=== PATIENT | male | born 1940 | race Caucasian/White ===

== ENCOUNTER 2016-10-06 07:44 | Day surgery (SDC) | payer OTHER ==
[~2016-10-06] VITALS: Ht 170.2 cm; Wt 111.5 kg
[~2016-10-06 07:44] MED LIST: ADVAIR HFA120 INHALA IH; AMBIEN5 MG PO; ASPIR 8181 M1 PO; CATAPRES0.2 MG PO; CLOTRIMAZOLE-BE15 GM TP; DESYREL100 MG PO; DIOVAN HCT 11 TABLE1 PO; EFFEXOR XR75 MG PO; EXFORGE 5/161 TABLET PO; EXFORGE HCT 5-1 EAC1 PO; LIPITOR20 MG PO; LORCET 5-325 M1 EACH PO; MUCINEX600 MG PO; PREDNISONE10 MG PO; PRILOSEC20 MG PO; PROVENTIL,2.5 MG/0.5 AEROSOL; RANITIDINE HCL300 MG PO; ROBITUSSIN AC,T10 ML PO; TRAZODONE HCL50 MG PO; VENLAFAXINE HC150 M1 PO; WELLBUTRIN SR100 MG PO
[2016-10-06 08:15] VITALS: BP 170/77
[2016-10-06 17:36] VITALS: BP 124/57
[2016-10-06 21:12] VITALS: BP 120/58
[2016-10-07 01:00] VITALS: BP 115/57
[2016-10-07 03:26] VITALS: BP 110/53
[2016-10-07 07:43] VITALS: BP 123/60
== END 2016-10-07 12:47 | disposition home or self-care (01) ==
LOC: SDC 07:44 → 2SOUTH 10:52 → SDC 16:21 → 2EAST 17:20
PROC: 0VBSXZZ Excision of Penis, External Approach (ICD-10-PCS; principal; 2016-10-06)
DX: C60.9 Malignant neoplasm of penis, unspecified (principal); G47.33 Obstructive sleep apnea (adult) (pediatric); E78.00 Pure hypercholesterolemia, unspecified; Z79.82 Long term (current) use of aspirin
CPT/HCPCS: 88307; 93005; 94640; 94640 76; 94760; 94799; 99202; G0378; J0131; J0690; J1100; J1170; J1580; J2250; J3010; J7050; S0020

== ENCOUNTER 2016-12-10 23:43 | Inpatient (IN) | payer OTHER ==
[~2016-12-10] VITALS: Ht 172.7 cm; Wt 103.5 kg
[~2016-12-10 23:43] MED LIST changes: +BUSPAR5 MG PO; -RANITIDINE HCL300 MG PO; +ZANTAC300 MG PO
[2016-12-11 10:30] VITALS: BP 155/80
[2016-12-11 23:15] VITALS: BP 133/72
[2016-12-12] VITALS (7 sets, daily range): BP systolic 128–150; BP diastolic 65–77
[2016-12-12 05:42] LABS: HEMATOCRIT 29.7 % (38.0-50.0); MCH 26.1 PG (29.0-34.0); MCHC 31.6 G/DL (30.0-36.0); MCV 82.5 FL (86-99); MEAN PLAT.VOLUME 9.7 uM^3 (9.0-12.4); PLATELET COUNT 304 K/uL (156-360); WHITE BLOOD COUNT 19.4 K/uL (4.1-10.2)
[2016-12-12 06:24] LABS: ANION GAP 9 MEQ/L (2-14); CHLORIDE 100 MEQ/L (99-109); GFR ESTIMATE (CALCULATED) > 59 mL/min/; GLUCOSE 121 mg/dL (70-99); POTASSIUM 4.2 MEQ/L (3.7-5.4); SAMPLE HEMOLYSIS CHECK 0; SAMPLE ICTERIC CHECK 0; SAMPLE LIPEMIA CHECK 0; SODIUM 137 MEQ/L (136-147); UREA NITROGEN (BUN) 17 mg/dL (9-23)
[2016-12-12 09:39] LABS: PREALBUMIN 15.9 mg/dL (10-40)
[2016-12-12 10:37] LABS: ADD MIUA? YES; BILIRUBIN NEGATIVE; BLOOD MODERATE; COLOR YELLOW ((YELLOW)); GLUCOSE (STRIP) NEGATIVE; KETONES NEGATIVE; LEUKOCYTES SMALL; NITRITE NEGATIVE; PROTEIN (STRIP) NEGATIVE; SPECIFIC GRAVITY 1.018 (1.000-1.030); UROBILINOGEN 0.2 MG/DL (0.2-1.0)
[2016-12-12 10:53] LABS: BACTERIA RARE /HPF; EPITHELIAL CELLS RARE /HPF; MUCUS TRACE /LPF; RED BLOOD CELLS 30-40 /HPF (0-5); UCUL ADDED? YES; URIC ACID CRYSTALS 3+ /HPF
[2016-12-12] MEDS ORDERED: ASPIR 8181 M1 PO (11:36)
[2016-12-12] MEDS ORDERED: VITAMIN B122500 MCG PO (11:37)
[2016-12-13 00:20] VITALS: BP 128/61
[2016-12-13 04:05] VITALS: BP 122/56
[2016-12-13 05:28] LABS: HEMATOCRIT 25.7 % (38.0-50.0); MCH 26.1 PG (29.0-34.0); MCHC 31.1 G/DL (30.0-36.0); MCV 83.7 FL (86-99); MEAN PLAT.VOLUME 9.8 uM^3 (9.0-12.4); PLATELET COUNT 223 K/uL (156-360); RBC DIS.WIDTH-CV 13.2 % (11.8-14.6); RBC DIS.WIDTH-SD 39.9 % (39-53); RED BLOOD COUNT 3.07 M/uL (4.00-5.50); WHITE BLOOD COUNT 12.5 K/uL (4.1-10.2)
[2016-12-13 05:54] LABS: ANION GAP 7 MEQ/L (2-14); CHLORIDE 97 MEQ/L (99-109); GFR ESTIMATE (CALCULATED) > 59 mL/min/; GLUCOSE 125 mg/dL (70-99); POTASSIUM 3.6 MEQ/L (3.7-5.4); SAMPLE HEMOLYSIS CHECK 0; SAMPLE ICTERIC CHECK 0; SAMPLE LIPEMIA CHECK 0; SODIUM 135 MEQ/L (136-147); UREA NITROGEN (BUN) 11 mg/dL (9-23)
[2016-12-13 08:09] VITALS: BP 131/61
[2016-12-13 12:16] VITALS: BP 137/73
[2016-12-13 16:40] VITALS: BP 150/70
[2016-12-13 18:54] VITALS: BP 153/71
[2016-12-14 00:11] VITALS: BP 145/67
[2016-12-14 05:21] LABS: MCHC 30.8 G/DL (30.0-36.0); MCV 84.5 FL (86-99); MEAN PLAT.VOLUME 9.9 uM^3 (9.0-12.4); PLATELET COUNT 221 K/uL (156-360); RBC DIS.WIDTH-CV 13.1 % (11.8-14.6); RED BLOOD COUNT 2.96 M/uL (4.00-5.50); WHITE BLOOD COUNT 11.4 K/uL (4.1-10.2)
[2016-12-14 05:42] LABS: ANION GAP 6 MEQ/L (2-14); CHLORIDE 100 MEQ/L (99-109); GFR ESTIMATE (CALCULATED) > 59 mL/min/; GLUCOSE 116 mg/dL (70-99); POTASSIUM 3.7 MEQ/L (3.7-5.4); SAMPLE HEMOLYSIS CHECK 0; SAMPLE ICTERIC CHECK 0; SAMPLE LIPEMIA CHECK 0; SODIUM 138 MEQ/L (136-147); UREA NITROGEN (BUN) 10 mg/dL (9-23)
[2016-12-14 07:30] VITALS: BP 132/64
[2016-12-14 12:15] VITALS: BP 115/67
[2016-12-14 15:30] VITALS: BP 133/65
[2016-12-14 20:00] VITALS: BP 145/86
[2016-12-14 23:55] VITALS: BP 137/77
[2016-12-15 04:00] VITALS: BP 144/67
[2016-12-15 05:47] LABS: HEMATOCRIT 25.3 % (38.0-50.0); MCH 25.6 PG (29.0-34.0); MCHC 30.4 G/DL (30.0-36.0); MCV 84.1 FL (86-99); MEAN PLAT.VOLUME 9.9 uM^3 (9.0-12.4); PLATELET COUNT 258 K/uL (156-360); RBC DIS.WIDTH-CV 12.8 % (11.8-14.6); RBC DIS.WIDTH-SD 38.7 % (39-53); RED BLOOD COUNT 3.01 M/uL (4.00-5.50); WHITE BLOOD COUNT 9.5 K/uL (4.1-10.2)
[2016-12-15 06:23] LABS: ANION GAP 7 MEQ/L (2-14); CHLORIDE 102 MEQ/L (99-109); GFR ESTIMATE (CALCULATED) > 59 mL/min/; GLUCOSE 96 mg/dL (70-99); POTASSIUM 3.8 MEQ/L (3.7-5.4); SAMPLE HEMOLYSIS CHECK 0; SAMPLE ICTERIC CHECK 0; SAMPLE LIPEMIA CHECK 0; SODIUM 138 MEQ/L (136-147); UREA NITROGEN (BUN) 10 mg/dL (9-23)
[2016-12-15 09:30] VITALS: BP 140/61
[2016-12-15 11:30] VITALS: BP 161/70
[2016-12-15 17:00] VITALS: BP 134/63
[2016-12-15 20:00] VITALS: BP 155/74
[2016-12-15 23:55] VITALS: BP 142/72
[2016-12-16 04:00] VITALS: BP 142/77
[2016-12-16 05:57] LABS: MCHC 31.5 G/DL (30.0-36.0); MCV 82.5 FL (86-99); MEAN PLAT.VOLUME 9.5 uM^3 (9.0-12.4); PLATELET COUNT 270 K/uL (156-360); RBC DIS.WIDTH-CV 12.6 % (11.8-14.6); RBC DIS.WIDTH-SD 38.3 % (39-53); RED BLOOD COUNT 3.15 M/uL (4.00-5.50); WHITE BLOOD COUNT 9.6 K/uL (4.1-10.2)
[2016-12-16 06:43] LABS: ANION GAP 8 MEQ/L (2-14); CHLORIDE 99 MEQ/L (99-109); GFR ESTIMATE (CALCULATED) > 59 mL/min/; GLUCOSE 116 mg/dL (70-99); POTASSIUM 3.5 MEQ/L (3.7-5.4); SAMPLE HEMOLYSIS CHECK 0; SAMPLE ICTERIC CHECK 0; SAMPLE LIPEMIA CHECK 0; SODIUM 135 MEQ/L (136-147); UREA NITROGEN (BUN) 7 mg/dL (9-23)
[2016-12-16 08:31] VITALS: BP 139/67
[2016-12-16 12:45] VITALS: BP 148/72
[2016-12-16 16:37] VITALS: BP 158/75
[2016-12-16 20:00] VITALS: BP 148/72
[2016-12-16 23:56] VITALS: BP 134/66
[2016-12-17 04:00] VITALS: BP 138/70
[2016-12-17 06:02] LABS: HEMATOCRIT 25.2 % (38.0-50.0); MCH 25.6 PG (29.0-34.0); MCV 82.6 FL (86-99); MEAN PLAT.VOLUME 9.7 uM^3 (9.0-12.4); PLATELET COUNT 290 K/uL (156-360); RBC DIS.WIDTH-CV 12.7 % (11.8-14.6); RBC DIS.WIDTH-SD 38.5 % (39-53); RED BLOOD COUNT 3.05 M/uL (4.00-5.50); WHITE BLOOD COUNT 10.1 K/uL (4.1-10.2)
[2016-12-17 06:29] LABS: ANION GAP 6 MEQ/L (2-14); CHLORIDE 102 MEQ/L (99-109); GFR ESTIMATE (CALCULATED) > 59 mL/min/; GLUCOSE 117 mg/dL (70-99); POTASSIUM 3.7 MEQ/L (3.7-5.4); SAMPLE HEMOLYSIS CHECK 0; SAMPLE ICTERIC CHECK 0; SAMPLE LIPEMIA CHECK 0; SODIUM 137 MEQ/L (136-147); UREA NITROGEN (BUN) 7 mg/dL (9-23)
[2016-12-17 08:25] VITALS: BP 120/84
[2016-12-17 20:02] VITALS: BP 116/61
[2016-12-17 23:36] VITALS: BP 113/63
[2016-12-18 04:35] VITALS: BP 128/65
[2016-12-18 05:11] LABS: HEMATOCRIT 25.1 % (38.0-50.0); MCH 25.7 PG (29.0-34.0); MCHC 31.1 G/DL (30.0-36.0); MCV 82.8 FL (86-99); MEAN PLAT.VOLUME 9.5 uM^3 (9.0-12.4); PLATELET COUNT 293 K/uL (156-360); RBC DIS.WIDTH-SD 39.4 % (39-53); RED BLOOD COUNT 3.03 M/uL (4.00-5.50); WHITE BLOOD COUNT 11.4 K/uL (4.1-10.2)
[2016-12-18 05:36] LABS: ANION GAP 7 MEQ/L (2-14); CHLORIDE 103 MEQ/L (99-109); GFR ESTIMATE (CALCULATED) > 59 mL/min/; GLUCOSE 116 mg/dL (70-99); POTASSIUM 3.4 MEQ/L (3.7-5.4); SAMPLE HEMOLYSIS CHECK 0; SAMPLE ICTERIC CHECK 0; SAMPLE LIPEMIA CHECK 0; SODIUM 137 MEQ/L (136-147); UREA NITROGEN (BUN) 6 mg/dL (9-23)
[2016-12-18 07:13] VITALS: BP 128/62
[2016-12-18 11:32] VITALS: BP 123/58
[2016-12-18] MEDS ORDERED: HYDROCODON-ACE1 EAC7 PO (14:27)
[2016-12-18] MEDS ORDERED: HEPARIN SO5000 UNIT4 SC (14:27)
[2016-12-18] MEDS ORDERED: NIFEREX-150,FE150 MG PO (14:27)
[2016-12-18 15:55] VITALS: BP 108/59
[2016-12-18 16:06] LABS: C DIFF TOXIN POSITIVE (NEGATIVE)
[2016-12-18 16:15] LABS: PROBE CHECK PASS
== END 2016-12-18 20:35 | DRG 330 ==
LOC: ENRESERV 23:43 → CANRESERV 23:43 → 2SOUTH 12-11 09:06 → 4EAST 12-11 09:33 → 2SOUTH 12-11 11:26 → ENRESERV 12-11 17:47 → 2SOUTH 12-11 21:57 → ENRESERV 12-11 22:02 → 4EAST 12-11 22:57
PROVIDERS: Surgery
DX: C18.4 Malignant neoplasm of transverse colon (principal); K56.7 Ileus, unspecified; J98.11 Atelectasis; E78.5 Hyperlipidemia, unspecified; E66.01 Morbid (severe) obesity due to excess calories; J44.9 Chronic obstructive pulmonary disease, unspecified; G47.33 Obstructive sleep apnea (adult) (pediatric); K66.0 Peritoneal adhesions (postprocedural) (postinfection); K21.9 Gastro-esophageal reflux disease without esophagitis; I10 Essential (primary) hypertension; F32.9 Major depressive disorder, single episode, unspecified; G89.18 Other acute postprocedural pain; D72.829 Elevated white blood cell count, unspecified; D63.8 Anemia in other chronic diseases classified elsewhere; D50.0 Iron deficiency anemia secondary to blood loss (chronic); R25.1 Tremor, unspecified; C60.9 Malignant neoplasm of penis, unspecified; Z85.46 Personal history of malignant neoplasm of prostate; Z87.891 Personal history of nicotine dependence; Z85.820 Personal history of malignant melanoma of skin; Z90.49 Acquired absence of other specified parts of digestive tract; Z92.3 Personal history of irradiation; Z68.36 Body mass index [BMI] 36.0-36.9, adult
CPT/HCPCS: 36415; 71010; 76937; 80048; 80053; 80061; 81003; 82040; 82378 GA; 84134; 85025; 85027; 86850; 86900; 86901; 87086; 87493; 88305; 88309; 94760; 94799; 97530 GO; 97530 GP; 99202; C1894; C9113; J0131; J0295; J1100; J1170; J1644; J2250; J2405; J2704; J2710; J2765; J3010; J3480; J7030; J7050

== ENCOUNTER 2016-12-25 11:46 | Observation (INO) | payer OTHER ==
[~2016-12-25] VITALS: Ht 172.7 cm; Wt 105.0 kg
[~2016-12-25 11:46] MED LIST changes: +HEPARIN SO5000 UNIT4 SC; +HYDROCODON-ACE1 EAC7 PO; +NIFEREX-150,FE150 MG PO; +VITAMIN B122500 MCG PO
[2016-12-25 13:26] LABS: TROP-I INTERPRETATION NEGATIVE; TROPONIN-I < 0.01 ng/mL (0.0-0.30)
[2016-12-25 13:34] LABS: ADD MIUA? YES; BILIRUBIN NEGATIVE; BLOOD SMALL; COLOR AMBER ((YELLOW)); GLUCOSE (STRIP) NEGATIVE; KETONES NEGATIVE; LEUKOCYTES MODERATE; NITRITE NEGATIVE; PROTEIN (STRIP) NEGATIVE; SPECIFIC GRAVITY 1.016 (1.000-1.030); UROBILINOGEN 0.2 MG/DL (0.2-1.0)
[2016-12-25 13:44] LABS: BACTERIA RARE /HPF; EPITHELIAL CELLS RARE /HPF; HYALINE CASTS 0-5 /LPF; MUCUS TRACE /LPF; UCUL ADDED? YES; UNCLASSIFIED CASTS 0-5 /LPF; WHITE BLOOD CELLS 15-20 /HPF (0-5)
[2016-12-25] MEDS ORDERED: NIFEREX-150,FE150 MG PO (17:33)
[2016-12-25] MEDS ORDERED: VENLAFAXINE HCL75 M3 PO (17:44)
[2016-12-25] MEDS ORDERED: ASCORBIC ACID500 M3 PO (17:47)
[2016-12-25] MEDS ORDERED: NORCO 5/3251 TABLET PO (17:48)
[2016-12-25 19:39] VITALS: BP 140/66
[2016-12-26] VITALS: BP 124/76
[2016-12-26 05:00] VITALS: BP 125/76
[2016-12-26 06:11] LABS: ANION GAP 9 MEQ/L (2-14); CHLORIDE 102 MEQ/L (99-109); GFR ESTIMATE (CALCULATED) > 59 mL/min/; GLUCOSE 107 mg/dL (70-99); POTASSIUM 4.6 MEQ/L (3.7-5.4); SAMPLE HEMOLYSIS CHECK 0; SAMPLE ICTERIC CHECK 0; SAMPLE LIPEMIA CHECK 0; SODIUM 140 MEQ/L (136-147); UREA NITROGEN (BUN) 17 mg/dL (9-23)
[2016-12-26 06:15] LABS: HEMATOCRIT 25.7 % (38.0-50.0); MCH 28.5 PG (29.0-34.0); MCHC 30.4 G/DL (30.0-36.0); MCV 93.8 FL (86-99); MEAN PLAT.VOLUME 9.2 uM^3 (9.0-12.4); PLATELET COUNT 432 K/uL (156-360); RBC DIS.WIDTH-CV 20.2 % (11.8-14.6); RBC DIS.WIDTH-SD 49.3 % (39-53); RED BLOOD COUNT 2.74 M/uL (4.00-5.50); WHITE BLOOD COUNT 24.1 K/uL (4.1-10.2)
[2016-12-26 11:55] VITALS: BP 134/74
[2016-12-26 16:00] VITALS: BP 141/71
[2016-12-26 20:00] VITALS: BP 124/78
[2016-12-27] VITALS (8 sets, daily range): BP systolic 101–128; BP diastolic 54–83
[2016-12-27] MEDS ORDERED: METRONIDAZOLE500 MG PO (13:27)
[2016-12-27] MEDS ORDERED: DOCUSATE SODIU100 MG PO (13:30)
[2016-12-27] MEDS ORDERED: HYDROCHLOROTHIA25 MG PO (13:30)
[2016-12-27] MEDS ORDERED: OXYCODONE HCL5 MG PO (13:31)
[2016-12-27] MEDS ORDERED: MORPHINE SULFAT15 M1 PO (13:31)
[2016-12-27] MEDS ORDERED: POLYETHYLENE GL17 GM PO (13:31)
[2016-12-27 14:24] LABS: BASOPHIL COUNT 0.1 K/uL (0-0.1); EOSINOPHIL COUNT 0.2 K/uL (0-0.3); HEMATOCRIT 22.3 % (38.0-50.0); IMMATURE GRANULOCYTE (%) 4.2 % (0.0-0.7); INSTRUMENT ABS NEUTROPHIL CT 20.6 K/uL; MCH 30.3 PG (29.0-34.0); MONOCYTE (%) 3.6 % (3-12); MONOCYTE COUNT 0.9 K/uL (0-0.8); NEUTROPHIL (%) 86.7 % (45-76); NEUTROPHIL COUNT 20.6 K/uL (1.8-6.4); NRBC (%) 1.2 /100 WBC (0-0); PLATELET COUNT 397 K/uL (156-360); RBC DIS.WIDTH-CV 24.4 % (11.8-14.6); RBC DIS.WIDTH-SD 71.7 % (39-53); RED BLOOD COUNT 2.21 M/uL (4.00-5.50); WHITE BLOOD COUNT 23.8 K/uL (4.1-10.2)
[2016-12-27 14:25] LABS: ANION GAP 6 MEQ/L (2-14); CHLORIDE 103 MEQ/L (99-109); MCV 100.9 FL (86-99); POTASSIUM 4.1 MEQ/L (3.7-5.4); SAMPLE HEMOLYSIS CHECK 0; SAMPLE ICTERIC CHECK 1; SAMPLE LIPEMIA CHECK 0; SODIUM 139 MEQ/L (136-147)
[2016-12-27 14:31] LABS: GFR ESTIMATE (CALCULATED) > 59 mL/min/; GLUCOSE 130 mg/dL (70-99); UREA NITROGEN (BUN) 25 mg/dL (9-23)
[2016-12-28 00:04] VITALS: BP 125/59
[2016-12-28 04:38] VITALS: BP 128/88
== END 2016-12-28 06:10 ==
LOC: EME 11:46 → 5WEST 16:53 → EDOF 16:53 → ENRESERV 16:55 → 5WEST 19:12
PROVIDERS: Emergency Medicine; Family Medicine; Internal Medicine
PROC: 30233N1 Transfusion of Nonautologous Red Blood Cells into Peripheral Vein, Percutaneous Approach (ICD-10-PCS; principal; 2016-12-25)
DX: D64.9 Anemia, unspecified (principal); G89.3 Neoplasm related pain (acute) (chronic); C60.2 Malignant neoplasm of body of penis; Z85.038 Personal history of other malignant neoplasm of large intestine; A04.7 Enterocolitis due to Clostridium difficile; N45.1 Epididymitis; B96.5 Pseudomonas (aeruginosa) (mallei) (pseudomallei) as the cause of diseases classified elsewhere; B95.2 Enterococcus as the cause of diseases classified elsewhere; N39.0 Urinary tract infection, site not specified; R33.9 Retention of urine, unspecified; D72.829 Elevated white blood cell count, unspecified; F32.9 Major depressive disorder, single episode, unspecified; Z90.49 Acquired absence of other specified parts of digestive tract; J44.9 Chronic obstructive pulmonary disease, unspecified; I10 Essential (primary) hypertension; E78.5 Hyperlipidemia, unspecified; K21.9 Gastro-esophageal reflux disease without esophagitis; Z79.82 Long term (current) use of aspirin; D75.89 Other specified diseases of blood and blood-forming organs; Z85.820 Personal history of malignant melanoma of skin; Z79.891 Long term (current) use of opiate analgesic; Z87.891 Personal history of nicotine dependence
CPT/HCPCS: 71010; 74177; 76870; 80048; 81003; 83605; 84484; 85025; 85027; 86920; 87040; 87070; 87075; 87077; 87086; 87147; 87186; 87205; 93005; 94640; 94640 76; 94760; 94799; 99202; 99281; 99285; C1753; G0378; J0696; J1644; J1940; J2270; J2543; J7050; P9016

== ENCOUNTER → 2017-01-16 | Outpatient (CLI) | payer OTHER ==
[~2017-01-16] MED LIST changes: +ACETAMINOPHEN325 M3 PO; +ASCORBIC ACID500 M3 PO; +ATIVAN0.5 MG PO; +DIOVAN160 MG PO; +DOCUSATE SODIU100 MG PO; +HYDROCHLOROTHIA25 MG PO; +METRONIDAZOLE500 MG PO; +MILK OF MAGN PO; +MORPHINE SULFAT15 M1 PO; +NORCO 5/3251 TABLET PO; +OXYCODONE HCL5 MG PO; +POLYETHYLENE GL17 GM PO; +VENLAFAXINE HCL75 M3 PO
== END | disposition home or self-care (01) ==
LOC: RAD 16:00
DX: S09.90XA Unspecified injury of head, initial encounter (principal)
CPT/HCPCS: 70450